=== PATIENT | female | born 1950 | race Caucasian/White ===

== ENCOUNTER 2017-11-25 09:19 | Observation (INO) | payer BC, OTHER ==
[~2017-11-25] VITALS: Ht 175.3 cm; Wt 50.0 kg
[~2017-11-25 09:19] MED LIST: ADVI200C9 PO; AK-T0.3S EACH EYE; BROM0.072 EACH EYE; DIFL0.0512 EACH EYE; LEVO50TA4 PO
[2017-11-25 09:42] VITALS: BP 132/62; PULSE 52; RESP 18; TEMP 98; O2SAT 100
[2017-11-25] MEDS ORDERED: LEVO50TA4 PO (09:55)
[2017-11-25] MEDS ORDERED: ASPI-183 PO (09:55)
[2017-11-25] MEDS ORDERED: SODIUM CHLOR 0.9% 1000 ML INJ 1,000 ML IV ONE (10:16)
[2017-11-25 10:30] VITALS: RESP 18; O2SAT 99
[2017-11-25] MEDS ORDERED: SODIUM CHLORIDE 0.9% FLUSH 10 ML FLUSH IVF PRN (10:30)
[2017-11-25 10:45] LABS: AUTOMATED NEUTROPHIL # 3.5 TH/MM3 (1.8-7.7); BASOPHIL # 0.1 TH/MM3 (0-0.2); BASOPHIL % 1.2 % (0.0-2.0); EOSINOPHIL % 0.5 % (0.0-4.0); HEMATOCRIT 35.4 % (35.0-46.0); HEMOGLOBIN 11.8 GM/DL (11.6-15.3); LYMPH % 16.8 % (9.0-44.0); LYMPHOCYTE # 0.8 TH/MM3 (1.0-4.8); MEAN CELL VOLUME 88.8 FL (80.0-100.0); MEAN CORPUSCULAR HEMOGLOBIN 29.7 PG (27.0-34.0); MEAN CORPUSCULAR HGB CONC 33.4 % (32.0-36.0); MONO % 7.9 % (0.0-8.0); MONOCYTE # 0.4 TH/MM3 (0-0.9); NEUT % 73.6 % (16.0-70.0); PLATELET COUNT 258 TH/MM3 (150-450); RED BLOOD COUNT 3.98 MIL/MM3 (4.00-5.30); RED CELL DISTRIBUTION WIDTH 12.8 % (11.6-17.2); WHITE BLOOD COUNT 4.7 TH/MM3 (4.0-11.0)
[2017-11-25 10:49] LABS: BILIRUBIN, URINE NEG (NEG); BLOOD, URINE NEG (NEG); GLUCOSE,URINE NEG (NEG); KETONE, URINE NEG (NEG); NITRITE,URINE NEG (NEG); PH, URINE 6.5 (5.0-8.5); SQUAMOUS EPITHELIAL CELL URINE <1 /hpf (0-5); URINE COLOR LIGHT-YELLOW (YELLW/STRAW); URINE LEUKOCYTE ESTERASE NEG (NEG)
--- NOTE | 2017-11-25 10:54 | RADRPT ---
EXAM DATE/TIME: 11/25/2017 10:33 [facility] COMPARISON: CT BRAIN W/O CONTRAST, June 29, 2016, 11:18. INDICATIONS : Dizziness. RADIATION DOSE: 56.35 CTDIvol (mGy) MEDICAL HISTORY : Cardiovascular disease. SURGICAL HISTORY : Tubal ligation. ENCOUNTER: Initial ACUITY: 1 day PAIN SCALE: 0/10 LOCATION: cranial TECHNIQUE: Multiple contiguous axial images were obtained of the head. Using automated exposure control and adj ustment of the mA and/or kV according to patient size, radiation dose was kept as low as reasonably a chievable to obtain optimal diagnostic quality images. DICOM format image data is available electro nically for review and comparison. FINDINGS: CEREBRUM: The ventricles are normal for age. No evidence of midline shift, mass lesion, hemorrhage or acute in farction. No extra-axial fluid collections are seen. POSTERIOR FOSSA: The cerebellum and brainstem are intact. The 4th ventricle is midline. The cerebellopontine angle i s unremarkable. EXTRACRANIAL: The visualized portion of the orbits is intact. SKULL: The calvaria is intact. No evidence of skull fracture. CONCLUSION: No acute intracranial findings. Regan Martin MD on November 25, 2017 at 10:49 Board Certified Radiologist. This report was verified electronically.
--- NOTE | 2017-11-25 11:04 | RADRPT ---
EXAM DATE/TIME: 11/25/2017 10:28 [facility] COMPARISON: CHEST SINGLE AP, May 01, 2016, 14:19. INDICATIONS : Heart palpitations, nausea, weakness, dizziness. MEDICAL HISTORY : None. SURGICAL HISTORY : None. ENCOUNTER: Initial ACUITY: 2 days PAIN SCORE: 0/10 LOCATION: Bilateral chest FINDINGS: Single AP view of the chest. The lungs are clear. Cardiomediastinal silhouette within normal limits. No evidence of pleural effusion or pneumothorax. CONCLUSION: No acute cardiopulmonary disease identified. Regan Martin MD on November 25, 2017 at 11:00 Board Certified Radiologist. This report was verified electronically.
[2017-11-25 11:16] LABS: ALBUMIN 3.7 GM/DL (3.4-5.0); ALKALINE PHOSPHATASE 70 U/L (45-117); ALT (GPT) 17 U/L (10-53); AST (GOT) 21 U/L (15-37); BICARBONATE 31.1 MEQ/L (21.0-32.0); BLOOD UREA NITROGEN 16 MG/DL (7-18); CALCIUM 8.5 MG/DL (8.5-10.1); CHLORIDE 103 MEQ/L (98-107); CREATININE 0.71 MG/DL (0.50-1.00); GLOMERULAR FILTRATION RATE 82 ML/MIN (>89); GLUCOSE,RANDOM 95 MG/DL (74-106); SODIUM (NA) 138 MEQ/L (136-145); TOTAL BILIRUBIN ADULT 0.2 MG/DL (0.2-1.0); TOTAL PROTEIN 6.9 GM/DL (6.4-8.2); TROPONIN I LESS THAN 0.02 NG/ML (0.02-0.05)
--- NOTE | 2017-11-25 12:15 | PD ---
HPI Chief Complaint: Dizziness Time Seen by Provider: 10:16 Travel History International Travel<30 days: No Contact w/Intl Traveler<30days: No Traveled to known affect area: No History of Present Illness HPI This is a 67-year-old female with a history of hypothyroidism, presents today with complaints of dizziness. The patient states that last night when she got up from a chair, she started experiencing severe dizziness. She denies any nausea or diaphoresis. Patient denied any history of previous symptoms. The patient reports that this morning when she woke up from bed when she went to get out of bed, she had another episode of severe dizziness. She states she felt associated can pass out. She reports still feeling "funny" in her head. She states that the paramedics told her heart rate was low. She states she's had low heart rate in the past. She reports that it has been in the 40s before. She sees a business process expert, Dr. Fenton, who follows her for a heart murmur. She denies any history of palpitations. She denies any chest pain, chest pressure. She does give history that this morning, she had 4 episodes of diarrhea. She states that she has no abdominal pain. She denies any history of diarrhea previously. There are no other complaints time of my examination. PFSH Past Medical History Anemia: Yes Arthritis: Yes (r hip) Autoimmune Disease: No Blood Disorders: No Anxiety: No Depression: No Heart Rhythm Problems: Yes (bradycardia) Cancer: No Cardiovascular Problems: Yes (IRREGULAR HEARTBEAT) High Cholesterol: No Chemotherapy: No Chest Pain: No Congestive Heart Failure: No Diabetes: No Endocrine: Yes Gastrointestinal Disorders: Yes (gastritis) GERD: No Genitourinary: Yes (UTI's ) Hiatal Hernia: No Immune Disorder: No Kidney Stones: No Musculoskeletal: Yes (bulgin disc with stenosis lower back, neck issues) Neurologic: Yes Psychiatric: No Reproductive: No Respiratory: No Radiation Therapy: No Renal Failure: No Sickle Cell Disease: No Thyroid Disease: Yes (hypothyroidism) Ulcer: No ?: Not Tubal Ligation: Yes Past Surgical History AICD: No Arteriovenous Shunt: No Section: Yes Eye Surgery: Yes (cataract 2016) Gynecologic Surgery: Yes Insulin Pump: No Joint Replacement: No Pacemaker: No Other Surgery: Yes Social History Alcohol Use: Yes (occassional) Tobacco Use: No Substance Use: No Allergies-Medications (Allergen,Severity, Reaction): Coded Allergies: ciprofloxacin (Unverified Allergy, Intermediate, tendon problems, 06/15/17) Reported Meds & Prescriptions Reported Meds & Active Scripts Active Reported Aspirin 325 Mg Tab 325 Mg PO DAILY Levothyroxine (Levothyroxine Sodium) 50 Mcg Tab 50 Mcg PO DAILY Review of Systems Except as stated in HPI: all other systems reviewed are Neg General / Constitutional: No: Fever, Chills Eyes: No: Blurred Vision, Photophobia HENT: Positive: Vertigo, Lightheadedness, No: Headaches, Neck Stiffness, Neck Pain Cardiovascular: Positive: Other, No: Chest Pain or Discomfort, Palpitations, Irregular Rhythm (history of heart murmur) Respiratory: No: Cough, Shortness of Breath Gastrointestinal: Positive: Nausea (mild), Diarrhea (4 episodes today), No: Vomiting, Abdominal Pain Genitourinary: No: Urgency, Frequency, Nocturia Musculoskeletal: No: Weakness, Pain Neurologic: Positive: Dizziness, Syncope (near syncope), No: Ataxia, Headache, Change in Mentation, Slurred Speech, Paresthesia, Sensory Disturbance Physical Exam Narrative GENERAL: Well-nourished, well-developed patient. SKIN: Focused skin assessment warm/dry. HEAD: Normocephalic. EYES: No scleral icterus. No injection or drainage. NECK: Supple, trachea midline. No JVD or lymphadenopathy. CARDIOVASCULAR: Sinus bradycardia with a rate of 49-51. 3/6 systolic murmur at the left sternal border. RESPIRATORY: Breath sounds equal bilaterally. No accessory muscle use. GASTROINTESTINAL: Abdomen soft, non-tender, nondistended. MUSCULOSKELETAL: No cyanosis, or edema. BACK: Nontender without obvious deformity. No CVA tenderness. NEUROLOGICAL: Awake and alert. Cranial nerves II through XII intact. Motor grossly within normal limits. Five out of 5 muscle strength in all muscle groups. Normal speech. Data Data Last Documented VS Vital Signs Date Time Temp Pulse Resp B/P (MAP) Pulse Ox O2 Delivery O2 Flow Rate FiO2 11/25/17 10:30 18 99 Room Air 11/25/17 09:47 54 11/25/17 09:42 98.0 Orders Orders Complete Blood Count With Diff (11/25/17 10:16) Comprehensive Metabolic Panel (11/25/17 10:16) Ckmb (Isoenzyme) Profile (11/25/17 10:16) Troponin I (11/25/17 10:16) Urinalysis - C+S If Indicated (11/25/17 10:16) Chest, Single Ap (11/25/17 10:16) Ct Brain W/O Iv Contrast(Rout) (11/25/17 10:16) Ecg Monitoring (11/25/17 10:16) Iv Access Insert/Monitor (11/25/17 10:16) Oximetry (11/25/17 10:16) Sodium Chloride 0.9% Flush (Ns Flush) (11/25/17 10:30) Sodium Chlor 0.9% 1000 Ml Inj (Ns 1000 M (11/25/17 10:16) Orthostatic Vital Signs (11/25/17 10:16) Enteric Path (Stool) (11/25/17 10:16) C Diff Toxin Pcr (11/25/17 10:16) Electrocardiogram (11/25/17 ) Thyroid Stimulating Hormone (11/25/17 12:10) Labs Laboratory Tests Test 11/25/17 10:24 White Blood Count 4.7 TH/MM3 Red Blood Count 3.98 MIL/MM3 Hemoglobin 11.8 GM/DL Hematocrit 35.4 % Mean Corpuscular Volume 88.8 FL Mean Corpuscular Hemoglobin 29.7 PG Mean Corpuscular Hemoglobin Concent 33.4 % Red Cell Distribution Width 12.8 % Platelet Count 258 TH/MM3 Mean Platelet Volume 8.0 FL Neutrophils (%) (Auto) 73.6 % Lymphocytes (%) (Auto) 16.8 % Monocytes (%) (Auto) 7.9 % Eosinophils (%) (Auto) 0.5 % Basophils (%) (Auto) 1.2 % Neutrophils # (Auto) 3.5 TH/MM3 Lymphocytes # (Auto) 0.8 TH/MM3 Monocytes # (Auto) 0.4 TH/MM3 Eosinophils # (Auto) 0.0 TH/MM3 Basophils # (Auto) 0.1 TH/MM3 CBC Comment DIFF FINAL Differential Comment Urine Color LIGHT-YELLOW Urine Turbidity CLEAR Urine pH 6.5 Urine Specific Scalf 1.003 Urine Protein NEG mg/dL Urine Glucose (UA) NEG mg/dL Urine Ketones NEG mg/dL Urine Occult Blood NEG Urine Nitrite NEG Urine Bilirubin NEG Urine Urobilinogen LESS THAN 2.0 MG/DL Urine Leukocyte Esterase NEG Urine RBC 1 /hpf Urine WBC LESS THAN 1 /hpf Urine Squamous Epithelial Cells <1 /hpf Microscopic Urinalysis Comment CULT NOT INDICATED Blood Urea Nitrogen 16 MG/DL Creatinine 0.71 MG/DL Random Glucose 95 MG/DL Total Protein 6.9 GM/DL Albumin 3.7 GM/DL Calcium Level 8.5 MG/DL Alkaline Phosphatase 70 U/L Aspartate Amino Transf (AST/SGOT) 21 U/L Alanine Aminotransferase (ALT/SGPT) 17 U/L Total Bilirubin 0.2 MG/DL Sodium Level 138 MEQ/L Potassium Level 4.0 MEQ/L Chloride Level 103 MEQ/L Carbon Dioxide Level 31.1 MEQ/L Anion Gap 4 MEQ/L Estimat Glomerular Filtration Rate 82 ML/MIN Total Creatine Kinase 100 U/L Troponin I LESS THAN 0.02 NG/ML MDM Medical Decision Making Medical Screen Exam Complete: Yes Emergency Medical Condition: Yes Differential Diagnosis CVA versus TIA versus anemia versus metabolic derangement versus vertigo versus symptomatic bradycardia Narrative Course 67 year-old female history of hypothyroidism, presents here after having episodes of dizziness. They're both positional and non-positional. Patient has a normal head CT. Labs and urinalysis are negative for acute process. The patient is still having symptoms at this time. While they are mild and not as bad as when she goes from supine to standing or sitting up, they are still persistent. Given this, she'll be admitted to the [facility] under observation. She will likely need an MRI and have telemetry to see if her heart rate is dropping into lower than the upper 40s. Case was discussed with Dr. Deniz Davis, hospitalist, who agrees with the plan. Diagnosis Primary Impression: Near syncope Additional Impressions: Bradycardia Hypothyroidism Admitting Information Admitting Physician Requests: Observation Julio Cesar Carrizales MD Nov 25, 2017 12:15
[2017-11-25 12:17] VITALS: BP_SYST 122; BP_SYST 127; BP_SYST 148; BP_DIAS 61; BP_DIAS 67; BP_DIAS 76; RESP 18
[2017-11-25] MEDS ORDERED: ACETAMINOPHEN 325 MG TAB PO PRN (12:30)
[2017-11-25] MEDS ORDERED: ONDANSETRON HCL 4 MG/2 ML VIAL IV PRN (12:30)
[2017-11-25 13:40] VITALS: BP 117/86; PULSE 62; RESP 18; O2SAT 98
--- NOTE | 2017-11-25 14:28 | HHI.HP ---
HPI Service [facility] Hospitalists Primary Care Physician Sammy Ruiz MD Admission Diagnosis Dizziness Chief Complaint: Dizziness Travel History International Travel<30 Days: No Contact w/Intl Traveler <30 Da: No Traveled to Known Affected Are: No History of Present Illness Mrs. Reid is a pleasant 67 y/o WF with hypothyroidism and hx of bradycardia. She states that she was in yoga class yesterday afternoon and was lying on her back at the end of class and when she went to get up she had significant dizziness. She did not feel like the room was spinning it was more of a lightheadedness and some blurred vision. This did improve after a few minutes. She had a similar episode this morning when rising out of bed. With the episode this morning she felt like she was having some palpitations. She had some tea and then started having some nausea and then had several BMs. This morning she had 5 BMs which was very unusual for her. Stool studies were checked and are pending. No fevers or chills. No sick contacts. Denies any sore throat, rhinorrhea, cough, congestion. Pt has not been on any antibiotics in the last 6 weeks. She thinks she may have had an antibiotic a few months ago. No previous hx of CVA or TIA. No hx of migraine headaches. She has hx of bradycardia and had previous hx of syncope in 2016 and had been recommended at that time to have a loop recorder which she did not do. Pt follows with Dr. Abernathy. Review of Systems Constitutional: COMPLAINS OF: Dizziness, DENIES: Fever, Chills Eyes: DENIES: Vision loss Ears, nose, mouth, throat: DENIES: Tinnitus, Hearing loss, Hoarseness, Running Nose, Sinus Pain Respiratory: DENIES: Cough, Shortness of breath Cardiovascular: DENIES: Chest pain, Palpitations, Dyspnea on Exertion, Lower Extremity Edema Gastrointestinal: COMPLAINS OF: Diarrhea, DENIES: Abdominal pain, Black stools , Bloody stools Genitourinary: DENIES: Urinary frequency, Urinary incontinence Musculoskeletal: DENIES: Back pain, Neck pain Integumentary: DENIES: Rash Neurologic: DENIES: Headache, Localized weakness, Paresthesias, Speech Problems Psychiatric: DENIES: Confusion Past Family Social History Past Medical History Hypothyroidism History of gastritis Bradycardia Osteoporosis Event Monitor (2016): - Symptomatic PACs 2D echo (03/17/2016): - EF 62% - Calcific aortic valvular disease with a mean gradient of 17mmHg. Pt has mild aoritc stenosis - Borderline right atrial enlargement. Past Surgical History section x 1 in 1984 Tonsillectomy EGD/colonoscopy Bilateral cataract surgery, June 2016 Reported Medications Aspirin 325 Mg PO DAILY Levothyroxine 50 Mcg PO DAILY Allergies: Coded Allergies: ciprofloxacin (Unverified Allergy, Intermediate, tendon problems, 06/15/17) Family History Mother has history of diabetes and hemorrhagic CVA Father with hx of CVA Social History Occasional alcohol use. Denies tobacco use. Physical Exam Vital Signs Vital Signs Date Time Temp Pulse Resp B/P (MAP) Pulse Ox O2 Delivery O2 Flow Rate FiO2 11/25/17 12:17 53 18 127/61 (83) 57 18 148/67 (94) 56 18 122/76 (91) 11/25/17 10:30 18 99 Room Air 11/25/17 09:47 54 18 99 Room Air 11/25/17 09:42 98.0 52 18 132/62 (85) 100 Room Air Physical Exam GENERAL: This is a well-nourished, well-developed patient, in no apparent distress. HEENT: Atraumatic. Normocephalic. No temporal or scalp tenderness. No scleral icterus. Airway patent. NECK: Trachea midline, supple, nontender. CARDIO: Regular. 4/6 LIYA with radiation into the carotids RESP: CTA bilaterally. No wheezes, rales, or rhonchi. ABD: +BS, soft, non-tender, nondistended. EXT: Extremities without clubbing, cyanosis, or edema. NEURO: Awake and alert. Motor and sensory grossly within normal limits. Normal speech. Laboratory Laboratory Tests Test 11/25/17 10:24 White Blood Count 4.7 Red Blood Count 3.98 Hemoglobin 11.8 Hematocrit 35.4 Mean Corpuscular Volume 88.8 Mean Corpuscular Hemoglobin 29.7 Mean Corpuscular Hemoglobin Concent 33.4 Red Cell Distribution Width 12.8 Platelet Count 258 Mean Platelet Volume 8.0 Neutrophils (%) (Auto) 73.6 Lymphocytes (%) (Auto) 16.8 Monocytes (%) (Auto) 7.9 Eosinophils (%) (Auto) 0.5 Basophils (%) (Auto) 1.2 Neutrophils # (Auto) 3.5 Lymphocytes # (Auto) 0.8 Monocytes # (Auto) 0.4 Eosinophils # (Auto) 0.0 Basophils # (Auto) 0.1 CBC Comment DIFF FINAL Differential Comment Urine Color LIGHT-YELLOW Urine Turbidity CLEAR Urine pH 6.5 Urine Specific Kenneth 1.003 Urine Protein NEG Urine Glucose (UA) NEG Urine Ketones NEG Urine Occult Blood NEG Urine Nitrite NEG Urine Bilirubin NEG Urine Urobilinogen LESS THAN 2.0 Urine Leukocyte Esterase NEG Urine RBC 1 Urine WBC LESS THAN 1 Urine Squamous Epithelial Cells <1 Microscopic Urinalysis Comment CULT NOT INDICATED Blood Urea Nitrogen 16 Creatinine 0.71 Random Glucose 95 Total Protein 6.9 Albumin 3.7 Calcium Level 8.5 Alkaline Phosphatase 70 Aspartate Amino Transf (AST/SGOT) 21 Alanine Aminotransferase (ALT/SGPT) 17 Total Bilirubin 0.2 Sodium Level 138 Potassium Level 4.0 Chloride Level 103 Carbon Dioxide Level 31.1 Anion Gap 4 Estimat Glomerular Filtration Rate 82 Total Creatine Kinase 100 Troponin I LESS THAN 0.02 Thyroid Stimulating Hormone 3rd Gen 1.460 Date/Time Source Procedure Growth Status 11/25/17 12:19 Stool Stool Pending Received Result Diagram: 11/25/17 1024 11/25/17 1024 Imaging Last Impressions Head CT 11/25/17 1016 Signed Impressions: Service Date/Time: November 10:33 - CONCLUSION: No acute intracranial findings. Regan Martin MD Chest X-Ray 11/25/17 1016 Signed Impressions: Service Date/Time: November 10:28 - CONCLUSION: No acute cardiopulmonary disease identified. MD Santos Foxi VTE Risk Assessment Caprini VTE Risk Assessment: Mod/High Risk (score >= 2) Caprini Risk Assessment Model Point Value = 1 Point Value = 2 Point Value = 3 Point Value = 5 Age 41-60 Minor surgery BMI > 25 kg/m2 Swollen legs Varicose veins or History of unexplained or recurrent spontaneous Oral contraceptives or hormone replacement Sepsis (< 1 month) Serious lung disease, including pneumonia (< 1 month) Abnormal pulmonary function Acute myocardial infarction Congestive heart failure (< 1 month) History of inflammatory bowel disease Medical patient at bed rest Age 61-74 Arthroscopic surgery Major open surgery (> 45 min) Laparoscopic surgery (> 45 min) Malignancy Confined to bed (> 72 hours) Immobilizing plaster cast Central venous access Age >= 75 History of VTE Family history of VTE Factor V Leiden Prothrombin [id number] Lupus anticoagulant Anticardiolipin antibodies Elevated serum homocysteine Heparin-induced thrombocytopenia Other congenital or acquired thrombophilia Stroke (< 1 month) Elective arthroplasty Hip, pelvis, or leg fracture Acute spinal cord injury (< 1 month) Prophylaxis Regimen Total Risk Factor Score Risk Level Prophylaxis Regimen 0-1 Low Early ambulation 2 Moderate Order ONE of the following: *Sequential Compression Device (SCD) *Heparin 5000 units SQ BID 3-4 Higher Order ONE of the following medications: *Heparin 5000 units SQ TID *Enoxaparin/Lovenox 40 mg SQ daily (WT < 150 kg, CrCl > 30 mL/min) *Enoxaparin/Lovenox 30 mg SQ daily (WT < 150 kg, CrCl > 10-29 mL/min) *Enoxaparin/Lovenox 30 mg SQ BID (WT < 150 kg, CrCl > 30 mL/min) AND/OR *Sequential Compression Device (SCD) 5 or more Highest Order ONE of the following medications: *Heparin 5000 units SQ TID (Preferred with Epidurals) *Enoxaparin/Lovenox 40 mg SQ daily (WT < 150 kg, CrCl > 30 mL/min) *Enoxaparin/Lovenox 30 mg SQ daily (WT < 150 kg, CrCl > 10-29 mL/min) *Enoxaparin/Lovenox 30 mg SQ BID (WT < 150 kg, CrCl > 30 mL/min) AND *Sequential Compression Device (SCD) Assessment and Plan Problem List: (1) Dizziness ICD Codes: R42 - Dizziness and giddiness Status: Acute Plan: - Pt is a 67 y/o WF with hypothyroidism and hx of bradycardia. - Pt started having some intermittent dizziness yesterday that initially occurred with positional changes. Described as more of a lightheadedness and some blurred vision. She had a similar episode this morning when rising out of bed. With the episode this morning she felt like she was having some palpitations, nausea and then had several BMs. - She has hx of bradycardia and had previous hx of syncope in 2016 and had been recommended at that time to have a loop recorder which she did not do. Pt follows with Dr. Abernathy. - Head CT in the ED noted no acute intracranial findings. - Orthostatic vital signs were checked and were negative. - Etiology of the pts above symptoms are not clear, will need to r/o CVA/TIA vs. vasovagal symptoms vs. cardiac dysrhythmia vs. other - MRI Brain is ordered - Check 2D echo - Check Carotid US - Telemetry - PT evaluation in AM - Stool ordered for C. diff and enteric path - Pts HR is stable currently in the 60's - We will admit for observation and further recommendations based on the results of the above workup. (2) Bradycardia ICD Codes: R00.1 - Bradycardia, unspecified Status: Chronic Plan: - Pt with hx of bradycardia - Event monitor in 2016 noted symptomatic PACs - Cont. telemetry monitoring (3) Hypothyroidism ICD Codes: E03.9 - Hypothyroidism, unspecified Status: Chronic Plan: - Home meds resumed - TSH 1.460 Kaykay Casas Nov 25, 2017 14:28
[2017-11-25] MEDS ORDERED: GADODIAMIDE PF 287 MG/ML 10 ML VIAL (for RAD MRI) IVCONTRAST ONE (16:17)
--- NOTE | 2017-11-25 16:42 | RADRPT ---
EXAM DATE/TIME: 11/25/2017 16:08 [facility] COMPARISON: No previous studies available for comparison. INDICATIONS : Dizziness. Dizziness with near syncope. CONTRAST: 10 cc Omniscan (gadodiamide) IV MEDICAL HISTORY : Hypothyroidism. Bradycardia. Gastritis. SURGICAL HISTORY : section. Tonsillectomy. Tubal ligation. Cataracts. ENCOUNTER: Subsequent ACUITY: 2 day PAIN SCORE: 0/10 LOCATION: cranial TECHNIQUE: Multiplanar, multisequence MRI of the brain was performed both prior to and following the administrat ion of paramagnetic contrast. FINDINGS: CEREBRUM: The ventricles are normal for age. No evidence of midline shift, mass lesion, hemorrhage or acute in farction. No extraaxial fluid collections are seen. The pituitary gland and suprasellar cistern are normal in configuration. WHITE MATTER: No significant signal abnormalities are seen in the white matter. POSTERIOR FOSSA: The cerebellum and brainstem are intact. The 4th ventricle is midline. The cerebellopontine angle is unremarkable. The cerebellar tonsils are normal in position. DIFFUSION IMAGING: No focal areas of restricted diffusion are seen. No evidence of acute infarction. EXTRACRANIAL: The visualized portions of the orbits and paranasal sinuses are unremarkable. POST-CONTRAST: No abnormal areas of parenchymal or dural enhancement. No evidence of blood-brain barrier breakdown. CONCLUSION: No acute intracranial findings. Regan Martin MD on November 25, 2017 at 16:37 Board Certified Radiologist. This report was verified electronically.
[2017-11-25] MEDS: SODIUM CHLOR 0.9% 1000 ML INJ 1,000 ML IV SCH (16:51)
[2017-11-25 17:52] VITALS: BP 128/72; PULSE 56
--- NOTE | 2017-11-25 18:35 | RADRPT ---
EXAM DATE/TIME: 11/25/2017 17:37 [facility] COMPARISON: US CAROTID ARTERIES, May 01, 2016, 18:23. EXTERNAL COMPARISON : [facility], MRA CAROTIDS March 28, 2009. INDICATIONS : Dizziness. MEDICAL HISTORY : Hypothyroidism. Arthritis. Head trauma. Syncope. Bradycardia. Gastritis. Bulging discs. Anemia. SURGICAL HISTORY : Tubal ligation. section. Cataract surgery. ENCOUNTER: Initial ACUITY: 1 day PAIN SCORE: 0/10 LOCATION: Bilateral neck PEAK SYSTOLIC VELOCITIES (cm/sec): ICA/CCA RATIO: Right: 2.0 Left: 1.2 ICA: Right: 144 Left: 94 CCA: Right: 74 Left: 77 ECA: Right: 84 Left: 48 VERTEBRAL: Right: 53 antegrade Left: 58 antegrade Elevated flow velocities and ICA/CCA ratios have been found to correlate with increased degrees of vessel stenosis, calculated as percentage of diameter relative to a normal segment of distal ICA/CCA FINDINGS: RIGHT CAROTID: Tortuosity demonstrated. No significant stenosis is visualized. The waveforms are within normal limi ts. LEFT CAROTID: Minimal plaque of the bulb and proximal internal carotid artery. No significant stenosis is visualize d. The waveforms are within normal limits. VERTEBRAL ARTERIES: Antegrade flow is seen in both vertebral arteries. MISCELLANEOUS: None. CONCLUSION: No significant plaque or narrowing. Tortuosity, especially on the right. Mehdi Treviño MD on November 25, 2017 at 18:31 Board Certified Radiologist. This report was verified electronically.
[2017-11-25 20:02] VITALS: BP 131/60; PULSE 60; RESP 18; TEMP 98.3; O2SAT 98
--- NOTE | 2017-11-25 22:51 | EKG ---
Date Performed: 11/25/2017 Time Performed: 09:39:27 PTAGE: 67 years EKG: SINUS BRADYCARDIA VOLTAGE CRITERIA FOR LVH ABNORMAL ECG PREVIOUS TRACING : 06/29/2016 10.39 Since the prior tracing, there has been no significant clifford DOCTOR: Mohsen Arnett Interpretating Date/Time 11/25/2017 22:50:29
[2017-11-26 01:09] VITALS: BP 110/55; PULSE 53; RESP 18; TEMP 97.6; O2SAT 98
[2017-11-26] MEDS: SODIUM CHLOR 0.9% 1000 ML INJ 1,000 ML IV SCH (03:00)
[2017-11-26] MEDS ORDERED: LEVOTHYROXINE SODIUM 50 MCG TAB PO SCH (06:00)
[2017-11-26 07:39] LABS: AUTOMATED NEUTROPHIL # 2.8 TH/MM3 (1.8-7.7); HEMATOCRIT 30.9 % (35.0-46.0); HEMOGLOBIN 10.4 GM/DL (11.6-15.3); LYMPH % 30.3 % (9.0-44.0); LYMPHOCYTE # 1.4 TH/MM3 (1.0-4.8); MEAN CELL VOLUME 89.5 FL (80.0-100.0); MEAN CORPUSCULAR HEMOGLOBIN 30.2 PG (27.0-34.0); MEAN CORPUSCULAR HGB CONC 33.7 % (32.0-36.0); MONO % 7.5 % (0.0-8.0); MONOCYTE # 0.3 TH/MM3 (0-0.9); NEUT % 60.2 % (16.0-70.0); PLATELET COUNT 231 TH/MM3 (150-450); RED BLOOD COUNT 3.46 MIL/MM3 (4.00-5.30); RED CELL DISTRIBUTION WIDTH 12.9 % (11.6-17.2); WHITE BLOOD COUNT 4.6 TH/MM3 (4.0-11.0)
[2017-11-26 08:00] VITALS: PULSE 54
[2017-11-26 08:07] VITALS: BP 113/60; PULSE 50; TEMP 98.2
[2017-11-26 08:25] LABS: BICARBONATE 27.3 MEQ/L (21.0-32.0); CREATININE 0.7 MG/DL (0.50-1.00); MAGNESIUM 2.1 MG/DL (1.5-2.5)
--- NOTE | 2017-11-26 08:35 | HHI.PR ---
Subjective Remarks Pt has been ambulating without much difficulty Some slight headache this morning with improved after being given ASA Objective Vitals Vital Signs Date Time Temp Pulse Resp B/P (MAP) Pulse Ox O2 Delivery O2 Flow Rate FiO2 11/26/17 08:07 98.2 50 113/60 (77) 11/26/17 01:09 97.6 53 18 110/55 (73) 98 11/25/17 20:02 98.3 60 18 131/60 (83) 98 11/25/17 17:52 56 11/25/17 17:52 128/72 (90) 11/25/17 13:40 62 18 117/86 (96) 98 Room Air 11/25/17 12:17 53 18 127/61 (83) 57 18 148/67 (94) 56 18 122/76 (91) 11/25/17 10:30 18 99 Room Air 11/25/17 09:47 54 18 99 Room Air 11/25/17 09:42 98.0 52 18 132/62 (85) 100 Room Air Result Diagram: 11/26/17 0650 11/26/17 0650 Other Results Laboratory Tests Test 11/25/17 10:24 11/25/17 12:19 11/26/17 06:50 White Blood Count 4.7 TH/MM3 4.6 TH/MM3 Red Blood Count 3.98 MIL/MM3 3.46 MIL/MM3 Hemoglobin 11.8 GM/DL 10.4 GM/DL Hematocrit 35.4 % 30.9 % Mean Corpuscular Volume 88.8 FL 89.5 FL Mean Corpuscular Hemoglobin 29.7 PG 30.2 PG Mean Corpuscular Hemoglobin Concent 33.4 % 33.7 % Red Cell Distribution Width 12.8 % 12.9 % Platelet Count 258 TH/MM3 231 TH/MM3 Mean Platelet Volume 8.0 FL 8.0 FL Neutrophils (%) (Auto) 73.6 % 60.2 % Lymphocytes (%) (Auto) 16.8 % 30.3 % Monocytes (%) (Auto) 7.9 % 7.5 % Eosinophils (%) (Auto) 0.5 % 1.0 % Basophils (%) (Auto) 1.2 % 1.0 % Neutrophils # (Auto) 3.5 TH/MM3 2.8 TH/MM3 Lymphocytes # (Auto) 0.8 TH/MM3 1.4 TH/MM3 Monocytes # (Auto) 0.4 TH/MM3 0.3 TH/MM3 Eosinophils # (Auto) 0.0 TH/MM3 0.0 TH/MM3 Basophils # (Auto) 0.1 TH/MM3 0.0 TH/MM3 CBC Comment DIFF FINAL DIFF FINAL Differential Comment Urine Color LIGHT-YELLOW Urine Turbidity CLEAR Urine pH 6.5 Urine Specific [place] 1.003 Urine Protein NEG mg/dL Urine Glucose (UA) NEG mg/dL Urine Ketones NEG mg/dL Urine Occult Blood NEG Urine Nitrite NEG Urine Bilirubin NEG Urine Urobilinogen LESS THAN 2.0 MG/DL Urine Leukocyte Esterase NEG Urine RBC 1 /hpf Urine WBC LESS THAN 1 /hpf Urine Squamous Epithelial Cells <1 /hpf Microscopic Urinalysis Comment CULT NOT INDICATED Blood Urea Nitrogen 16 MG/DL 13 MG/DL Creatinine 0.71 MG/DL 0.70 MG/DL Random Glucose 95 MG/DL 93 MG/DL Total Protein 6.9 GM/DL Albumin 3.7 GM/DL Calcium Level 8.5 MG/DL 8.0 MG/DL Alkaline Phosphatase 70 U/L Aspartate Amino Transf (AST/SGOT) 21 U/L Alanine Aminotransferase (ALT/SGPT) 17 U/L Total Bilirubin 0.2 MG/DL Sodium Level 138 MEQ/L 143 MEQ/L Potassium Level 4.0 MEQ/L 4.5 MEQ/L Chloride Level 103 MEQ/L 111 MEQ/L Carbon Dioxide Level 31.1 MEQ/L 27.3 MEQ/L Anion Gap 4 MEQ/L 5 MEQ/L Estimat Glomerular Filtration Rate 82 ML/MIN 83 ML/MIN Total Creatine Kinase 100 U/L Troponin I LESS THAN 0.02 NG/ML Thyroid Stimulating Hormone 3rd Gen 1.460 uIU/ML Magnesium Level 2.1 MG/DL Imaging Last Impressions Brain MRI 11/25/17 1354 Signed Impressions: Service Date/Time: November 16:08 - CONCLUSION: No acute intracranial findings. Regan Martin MD Head CT 11/25/17 1016 Signed Impressions: Service Date/Time: November 10:33 - CONCLUSION: No acute intracranial findings. Regan Martin MD Chest X-Ray 11/25/17 1016 Signed Impressions: Service Date/Time: November 10:28 - CONCLUSION: No acute cardiopulmonary disease identified. Regan Martin MD Carotid Artery Ultrasound 11/25/17 0000 Signed Impressions: Service Date/Time: November 17:37 - CONCLUSION: No significant plaque or narrowing. Tortuosity, especially on the right. Mehdi Treviño MD Objective Remarks General: NAD, AAOx3 Chest: CTA Cardiac: Regular, 4/6 LIYA Abd: +BS, soft ND/NT Ext: No edema A/P Problem List: (1) Dizziness ICD Codes: R42 - Dizziness and giddiness Status: Acute Plan: - Pt is a 67 y/o WF with hypothyroidism and hx of bradycardia. - Pt started having some intermittent dizziness yesterday that initially occurred with positional changes. Described as more of a lightheadedness and some blurred vision. She had a similar episode this morning when rising out of bed. With the episode this morning she felt like she was having some palpitations, nausea and then had several BMs. - She has hx of bradycardia and had previous hx of syncope in 2016 and had been recommended at that time to have a loop recorder which she did not do. Pt follows with Dr. Abernathy. - Head CT in the ED noted no acute intracranial findings. - Orthostatic vital signs were checked and were negative. - Etiology of the pts above symptoms are not clear, will need to r/o CVA/TIA vs. vasovagal symptoms vs. cardiac dysrhythmia vs. other - MRI Brain (11/25) --> No acute intracranial findings - Check 2D echo --> pending - Carotid US --> No significant plaque or narrowing. Tortuosity, especially on the right. - PT evaluation - Stool for C. diff is pending and enteric path is negative. - Pts HR was in the 40's on telemetry overnight (2) Bradycardia ICD Codes: R00.1 - Bradycardia, unspecified Status: Chronic Plan: - Pt with hx of bradycardia - Event monitor in 2016 noted symptomatic PACs - Cont. telemetry monitoring (3) Hypothyroidism ICD Codes: E03.9 - Hypothyroidism, unspecified Status: Chronic Plan: - Home meds resumed - TSH 1.460 Assessment and Plan Patient examined. Assessment and plan formulated with Kaykay Casas PA-C. I agree with the above. severe AVS. bradycardia. dizziness mostly postural. discussed with cardiology. plan for C unless declines. She is very anxious about it. Kaykay Casas Nov 26, 2017 08:35 Deniz Davis MD Nov 26, 2017 14:54
[2017-11-26] MEDS ORDERED: ASPIRIN 325 MG TAB PO SCH (09:00)
[2017-11-26 12:10] VITALS: BP 115/60; PULSE 53; RESP 20; TEMP 97.8; O2SAT 96
--- NOTE | 2017-11-26 13:12 | ECHRPT ---
Indication: DIZZINESS CONCLUSIONS The left ventricular systolic function is normal with an estimated ejection fraction in the range of 55-60%. Mild concentric left ventricular hypertrophy. Severe aortic valve stenosis (peak 65, mean 35, LUIS 0.64) There is mild tricuspid valve regurgitation. BP: 110 / 55 HR: 53 Rhythm: Sinus MEASUREMENTS (Male / Female) Normal Values Technical Quality:Fair 2D ECHO LV Diastolic Diameter PLAX 3.7 cm 4.2 - 5.9 / 3.9 - 5.3 cm LV Systolic Diameter PLAX 2.8 cm IVS Diastolic Thickness 1.1 cm 0.6 - 1.0 / 0.6 - 0.9 cm LVPW Diastolic Thickness 1.1 cm 0.6 - 1.0 / 0.6 - 0.9 cm LV Relative Wall Thickness 0.6 RV Internal Dim ED PLAX 3.9 cm LVOT Diameter 1.8 cm Aortic Root Diameter 2.9 cm LA Systolic Diameter LX 3.2 cm 3.0 - 4.0 / 2.7 - 3.8 cm DOPPLER AV Peak Velocity 405.0 cm/s AV Peak Gradient 65.6 mmHg AV Mean Gradient 35.0 mmHg AV Velocity Time Integral 91.4 cm LVOT Peak Velocity 102.0 cm/s LVOT Peak Gradient 4.2 mmHg LVOT Velocity Time Integral 22.2 cm AV Area Cont Eq vti 0.6 cm AV Area Cont Eq pk 0.6 cm Mitral E Point Velocity 94.8 cm/s Mitral A Point Velocity 85.9 cm/s Mitral E to A Ratio 1.1 LV E' Lateral Velocity 6.3 cm/s Mitral E to LV E' Lateral Ratio 15.0 LV E' Septal Velocity 7.8 cm/s Mitral E to LV E' Septal Ratio 12.2 TR Peak Velocity 258.0 cm/s TR Peak Gradient 26.6 mmHg Right Atrial Pressure 10.0 mmHg Pulmonary Artery Systolic Pressu 36.6 mmHg Right Ventricular Systolic Press 36.6 mmHg PV Peak Velocity 73.7 cm/s PV Peak Gradient 2.2 mmHg FINDINGS LEFT VENTRICLE Normal left ventricular size. Mild concentric left ventricular hypertrophy. The left ventricular systolic function is normal with an estimated ejection fraction in the range of 55-60%. No regional wall motion abnormalities are present. RIGHT VENTRICLE The right ventricle is mildly dilated. The right ventricular systoilc function is normal. LEFT ATRIUM The left atrial size is mildly dilated. RIGHT ATRIUM The right atrial size is moderately dilated. ATRIAL SEPTUM No atrial level shunt is demonstrated by color flow Doppler interrogation. AORTA The aortic root and proximal ascending aorta are normal in size on limited imaging. MITRAL VALVE Mild thickening of the anterior mitral valve leaflet. No mitral valve stenosis. Trace mitral valve regurgitation. AORTIC VALVE Diffuse calcification of the aortic valve. Severe aortic valve stenosis (peak 65, mean 35, LUIS 0.64) No aortic valve regurgitation. TRICUSPID VALVE Structurally normal tricuspid valve. There is mild tricuspid valve regurgitation. The estimated pulmonary arterial pressure is 36.6 mmHg. PULMONARY VALVE Trivial pulmonary valve regurgitation. VESSELS The inferior vena cava is normal in size. PERICARDIUM No pericardial effusion. Mohsen Arnett DO (Electronically Signed) Final Date:26 November 2017 13:12
[2017-11-26] MEDS ORDERED: MECL-62 PO (15:10)
--- NOTE | 2017-11-26 15:10 | HHI.DCPOC ---
Discharge Care Plan Diagnosis: (1) Aortic stenosis (2) Bradycardia (3) Dizziness (4) Hypothyroidism Goals to Promote Your Health * To prevent worsening of your condition and complications * To maintain your health at the optimal level Directions to Meet Your Goals Take your medications as prescribed Follow your dietary instruction Follow activity as directed Keep your appointments as scheduled Take your immunizations and boosters as scheduled If your symptoms worsen call your PCP, if no PCP go to Urgent Care Center or Emergency Room Smoking is Dangerous to Your Health. Avoid second hand smoke Call the 24-hour hour crisis hotline for domestic abuse at Deniz Davis MD Nov 26, 2017 15:10
[2017-11-26] MEDS ORDERED: MECLIZINE HCL 25 MG TAB PO ONE (16:00)
--- NOTE | 2017-11-27 11:25 | MB ---
cc: OCTAVIO SRIVASTAVA DO DATE OF CONSULTATION: 11/27/2017 REASON FOR CONSULTATION: Severe aortic stenosis. HISTORY OF PRESENT ILLNESS: Zuri Burton is a pleasant 67-year-old female who sees my partner Dr. Abernathy in the office and presented to the [facility] Emergency Room on November 25, 2017 due to dizziness. She states that she was at yoga class yesterday afternoon and was lying on her back at the end of class and when she went to get up she had significant dizziness. She did not feel like the room was spinning, it was more just lightheadedness and blurry vision. This improved after a few minutes and then she had a similar episode this morning when trying to get out of bed. She presented to the emergency room and was being worked up for this as well as noted to be bradycardic. An echocardiogram was done and on this she was found to have significant aortic stenosis. On seeing her, she is currently hemodynamically stable without chest pain, shortness of breath or dizziness. She states that she has been up and walking around without complaints. She also this week ran between 3 and 4 miles most of the days without complaints. She states that she has never had chest pain or shortness of breath. She has recently been somewhat dizzy with changes in position. One of the physical therapists did the [place]-Hallpike test and this caused her to have significant vertigo. She does have a history of two syncopal episodes in 2016 but for unknown reason. PAST MEDICAL HISTORY: 1. Hypothyroidism. 2. Gastritis. 3. Baseline bradycardia. 4. Osteoporosis. 5. Symptomatic PACs on a vent monitor. PAST SURGICAL HISTORY: 1. section (1984). 2. Tonsillectomy. 3. EGD/colonoscopy. 4. Bilateral cataract surgery (June of 2016). ALLERGIES: 1. CIPROFLOXACIN. MEDICATIONS: 1. Atrovent 325 milligrams daily. 2. Synthroid 50 micrograms daily. FAMILY HISTORY: Mother has a history of diabetes and hemorrhagic CVA. Father had a history of CVA. SOCIAL HISTORY: The patient occasionally drinks alcohol. Smoked minimally in her younger years but quit a number of years ago. Denies drug abuse. REVIEW OF SYSTEMS Fourteen systems were reviewed including osteopathic with pertinent positives and negatives as above; otherwise negative. PHYSICAL EXAMINATION VITAL SIGNS: Temperature 97.8, heart rate 53, blood pressure 115/60, respirations 20, pulse oximetry 96% on room air. GENERAL: In general, the patient appears well and in no acute distress. Awake, alert and oriented times three. HEAD, EYES, EARS, NOSE, THROAT: Extraocular muscles intact. The mucous membranes are moist. Notable for looking older than stated age. NECK: Supple. No JVD at 45 degrees. No carotid bruits heard bilaterally. Carotid upstroke is brisk in nature. HEART: Regular rate and rhythm. Positive first and second heart sounds with a 3/6 crescendo-decrescendo murmur to the right sternal border. This ends up dampening part of S2. LUNGS: Clear to auscultation bilaterally. No wheezes, rales or rhonchi. ABDOMEN: The abdomen is soft, nontender and nondistended. No organomegaly noted. EXTREMITIES: No clubbing, cyanosis or edema. Femoral and distal pulses are intact bilaterally. NEUROLOGIC: No focal deficits. SKIN: Warm, dry and intact. OSTEOPATHIC: Osteopathically, no kyphoscoliosis, lordosis or paraspinal tender points. LABORATORY FINDINGS: Hemoglobin 10.4, hematocrit 30.9, platelets 231,000. Potassium 4.5, BUN 13, creatinine 0.7. Troponin less than 0.02. TSH 1.46. CARDIOLOGY STUDIES: Electrocardiogram (November 25, 2017 at 0939): sinus bradycardia, voltage criteria for left ventricular hypertrophy, no significant change from previous. Echocardiogram (November 26, 2017): Ejection fraction 55-60%, mild concentric left ventricular hypertrophy, severe aortic stenosis (peak gradient 65, mean gradient 35, aortic valve area 0.64), mild tricuspid regurgitation. IMPRESSION: 1. Lightheadedness, most likely benign positional vertigo. 2. Severe aortic stenosis by echocardiogram, most likely asymptomatic. 3. Baseline bradycardia, most likely due to athletic heart. RECOMMENDATIONS: 1. Ms. Burton presented with lightheadedness which is most likely due to benign positional vertigo. 2. She appears to be asymptomatic with no chest pain, shortness of breath or syncopal episodes, although she had two previous syncopal episodes which were undefined but none since that time which would overall not be the typical progression of aortic stenosis. 3. I did offer her consideration of cardiac catheterization for workup for severe aortic stenosis as I think she eventually needs this. She would prefer to go home and come back electively in the next two weeks for the left and right heart catheterization. She will call my office to set this up. 4. She will be placed on meclizine per the primary team. 5. I discussed with her if she has any further episodes of chest pain, shortness of breath, lightheadedness that does not go away with meclizine or syncopal episodes she needs to come back to the emergency room immediately and we will reevaluate our game plan for her workup of severe aortic stenosis. Thank you for allowing me to see Zuri Burton. If there are any questions, please do not hesitate to call. Octavio Srivastava DO VGP/JCC /10:15 PM /10:53 AM
== END 2017-11-26 19:01 | disposition home or self-care (01) ==
LOC: NEPE 09:19 → NEDA 14:30 → NEPGCP 16:57
PROVIDERS: ADMIT Hospitalist; ATTEND Hospitalist
DX: I35.0 Nonrheumatic aortic (valve) stenosis (principal); R00.1 Bradycardia, unspecified; R42 Dizziness and giddiness; E03.9 Hypothyroidism, unspecified; M81.0 Age-related osteoporosis without current pathological fracture
CPT/HCPCS: 70450; 70553; 71045; 80048; 80053; 81001; 82550; 83735; 84443; 84484; 85025; 87493; 87506; 93005; 93306; 93880; 96361; 96374; 97161; 99285; A9579; G0378; G8987; G8988; J2405; J7030